=== PATIENT | female | born 1970 | race Caucasian/White ===

== ENCOUNTER 2021-07-13 14:18 | Emergency (ER) | payer BC ==
[~2021-07-13] VITALS: Ht 152.4 cm; Wt 55.3 kg
[2021-07-13 14:22] VITALS: BP_SYST 112
--- NOTE | 2021-07-13 14:22 | NUR ---
PT TRIAGED AND PLACED IN MAIN LOBBY FOR AVAILABLE BED IN MAIN ED
--- NOTE | 2021-07-13 14:30 | NUR ---
PT CAME IN FROM HOME REPORTS WORSENING LOWER BACK PAIN X 2 WEEKS. YESTERDAY PAIN WAS SO BAD SHE WAS UNABLE TO WALK UP STAIRS. ALSO C/O URINARY RETENTION. PT IS AMBULATORY, ARRIVES TO ER IN HIGH HEELS, AAOX4, VSS
--- NOTE | 2021-07-13 15:00 | NUR ---
Patient to ER bed H1 to gown for evaluation. Side rails up.
[2021-07-13] MEDS ORDERED: MORPHINE 4 MG INJ. 4 MG/ML VIAL IM ONE (15:15)
[2021-07-13] MEDS ORDERED: KETOROLAC TROMETHAMINE 60 MG/2 ML VIAL IM ONE (15:15)
--- NOTE | 2021-07-13 16:00 | NUR ---
PT SLEEPING IN GURNEY, EASILY ARROUSABLE TO VOICE, NO DISTRESS NOTED
[2021-07-13 17:30] VITALS: BP_SYST 117
--- NOTE | 2021-07-13 17:30 | NUR ---
Patient given written and verbal discharge instructions and verbalizes understanding. ER MD discussed with patient the results and treatment provided. Patient in stable condition. ID arm band removed. NO Rx given. Patient educated on pain management and to follow up with PMD. Pain Scale 0/10. Opportunity for questions provided and answered. Medication side effect fact sheet provided.
[2021-07-13] MEDS ORDERED: NAPR-690 PO (17:40)
== END 2021-07-13 17:30 | disposition home or self-care (01) ==
LOC: SED 14:18
DX: S33.5XXA Sprain of ligaments of lumbar spine, initial encounter (principal); R33.9 Retention of urine, unspecified; J45.909 Unspecified asthma, uncomplicated; G43.909 Migraine, unspecified, not intractable, without status migrainosus; Z98.84 Bariatric surgery status; X58.XXXA Exposure to other specified factors, initial encounter; Y93.89 Activity, other specified; Y92.89 Other specified places as the place of occurrence of the external cause; Y99.8 Other external cause status
CPT/HCPCS: 72131; 76376; 96372; 99284; J1885; J2270